=== PATIENT | female | born 1955 | race Caucasian/White ===

== ENCOUNTER 2016-06-15 13:06 | Outpatient (CLI) | payer MEDICARE, OTHER ==
[2016-06-15 13:39] LABS: #Eosinphils 0.2 thou/uL (0.0-0.7); #Lymphocytes 1.5 thou/uL (1.20-3.40); #Monocytes 0.3 thou/uL (0.11-0.59); #Neutrophils 3.2 thou/uL (1.40-6.50); %Basophils 0.8 % (0.0-1.0); %Eosinophils 3.1 % (0.0-10.0); %Monocytes 5.9 % (0.0-10.0); Mean Platelet Volume 7.3 fL (7.4-10.4); Red Blood Cell (RBC) Count 5.15 mill/uL (4.20-5.40); White Blood Cell (WBC) Count 5.2 thou/uL (4.8-10.8)
[2016-06-15 13:54] LABS: ALT (SGPT) 46 U/L (0-55); AST (SGOT) 25 U/L (5-34); Alkaline Phosphatase 126 U/L (40-150); Anion Gap 13 mmol/L (10-20); BUN (Urea Nitrogen) 13 mg/dL (9.8-20.1); Bilirubin, Total 0.6 mg/dL (0.2-1.2); Calc. Creatinine Clearance 0 mL/min (70-130); Calcium 10.2 mg/dL (7.8-10.44); Carbon Dioxide 26 mmol/L (22-29); Chloride 109 mmol/L (98-107); Estimated GFR-MDRD 64; Globulin 2.5 g/dL (2.4-3.5); Protein, Total 6.9 g/dL (6.0-8.3)
== END 2016-06-15 13:07 ==
LOC: HPCALD 13:06
PROVIDERS: ATTEND Physician Assistant
DX: E78.5 Hyperlipidemia, unspecified (principal); W19.XXXD Unspecified fall, subsequent encounter
CPT/HCPCS: 36415; 80053; 80061; 84443; 85025

== ENCOUNTER 2016-09-21 11:02 | Outpatient (CLI) | payer MEDICARE, OTHER | END 2016-09-21 11:03 | LOC: HPCALD 11:02 | PROVIDERS: ATTEND Physician Assistant | DX: N39.0 Urinary tract infection, site not specified (principal) | CPT/HCPCS: 87086 ==

== ENCOUNTER 2016-11-16 11:50 | Outpatient (CLI) | payer MEDICARE | END 2016-11-16 11:51 | disposition home or self-care (01) | LOC: HPCALD 11:50 | PROVIDERS: ATTEND Physician Assistant | DX: N39.0 Urinary tract infection, site not specified (principal) | CPT/HCPCS: 87086 ==

== ENCOUNTER 2016-11-30 10:02 | Outpatient (CLI) | payer MEDICARE | END 2016-11-30 10:03 | LOC: HPCALD 10:02 | PROVIDERS: ATTEND Physician Assistant | DX: F31.62 Bipolar disorder, current episode mixed, moderate (principal) | CPT/HCPCS: 36415; 80178 ==

== ENCOUNTER 2016-12-02 11:09 | Outpatient (CLI) | payer MEDICARE ==
--- NOTE | 2016-12-02 20:51 | ULT ---
BILATERAL RENAL ULTRASOUND 12/02/16 Ultrasonography of the kidneys was performed for evaluation of flank pain. Documentary images and wo rksheets were provided and reviewed. The right kidney measures 9.7 x 4.9 x 4.3 cm and the left measures 11.0 x 5.0 x 4.0 cm. No mass or h ydronephrosis was seen in either. The cortical thickness was slightly thinned bilaterally but symmet rical. There were no focal renal abnormalities of concern. No masses were seen within the urinary bladder. The wall thickness was borderline at 3 mm. IMPRESSION: No definite acute urinary tract finding. POS: HOME
== END 2016-12-02 11:10 | disposition home or self-care (01) ==
LOC: BURULT 11:09
PROVIDERS: ATTEND Nurse Practitioner Family
DX: R10.9 Unspecified abdominal pain (principal)
CPT/HCPCS: 76770

== ENCOUNTER 2016-12-21 13:52 | Outpatient (CLI) | payer MEDICARE, OTHER | END 2016-12-21 13:53 | disposition home or self-care (01) | LOC: HPCALD 13:52 | PROVIDERS: ATTEND Physician Assistant | DX: F31.62 Bipolar disorder, current episode mixed, moderate (principal) | CPT/HCPCS: 36415; 80178 ==

== ENCOUNTER 2016-12-28 13:50 | Outpatient (CLI) | payer MEDICARE ==
--- NOTE | 2016-12-28 21:59 | RAD ---
RIGHT ANKLE 3 VIEWS: DATE: 12/28/16. FINDINGS: Old fractures of the tip of the lateral malleolus are evident. Some of the fragments are ununited. This does not appear at all recent. The ankle joint is normal in width and the articular surfaces are smooth. On the oblique view, one might wonder about a little lucency in the dome of the talus l aterally, but it is not enough to confidently diagnose an osteochondral defect. If pain persisted, an MRI would be needed to fully evaluate it. IMPRESSION: 1. Old injury of lateral malleolus. 2. Other findings as noted. POS: HOME
--- NOTE | 2016-12-28 22:01 | RAD ---
RIGHT KNEE 4 VIEWS: DATE: 12/28/16. FINDINGS: No fracture or joint effusion was seen. There is calcification of the menisci, however. This can b e seen in degenerative conditions and chondrocalcinosis (due to various deposition diseases). The j oint space is acceptable for age and equal between compartments. IMPRESSION: 1. No acute findings. 2. Meniscal calcifications. See above. POS: HOME
== END 2016-12-28 13:51 | disposition home or self-care (01) ==
LOC: BURRAD 13:50
PROVIDERS: ATTEND Physician Assistant
DX: M25.561 Pain in right knee (principal); M25.861 Other specified joint disorders, right knee

== ENCOUNTER 2017-07-01 14:48 | Outpatient (CLI) | payer MEDICARE ==
--- NOTE | 2017-07-02 07:29 | RAD ---
RIGHT WRIST THREE VIEWS 07/01/17 No fracture was apparent. Carpals appeared normal. The metacarpals appear normal. IMPRESSION: No acute finding. POS: HOME
== END 2017-07-01 14:49 | disposition home or self-care (01) ==
LOC: BURRAD 14:48
PROVIDERS: ATTEND Physician Assistant
DX: M25.531 Pain in right wrist (principal)

== ENCOUNTER 2017-07-04 13:32 | Emergency (ER) | payer MEDICARE ==
[2017-07-04] MEDS ORDERED: Ibuprofen 800 MG TAB ONE (14:15)
--- NOTE | 2017-07-04 17:11 | RAD ---
RIGHT ANKLE THREE VIEWS: Date: 07-04-17 Comparison: 12-28-16 FINDINGS: Soft tissue swelling is present around the ankle, a little more medially than laterally today. An old ununited fracture at the tip of the lateral malleolus is present as before. No new fractures or new bony changes were appreciated. A tiny calcaneal spur was noted. IMPRESSION: Soft tissue swelling. Old ununited distal fibular fracture. POS: HOME
== END 2017-07-04 14:20 | disposition home or self-care (01) ==
LOC: BURERS 13:32
DX: S93.601A Unspecified sprain of right foot, initial encounter (principal); S82.831K Other fracture of upper and lower end of right fibula, subsequent encounter for closed fracture with nonunion; E11.9 Type 2 diabetes mellitus without complications; I10 Essential (primary) hypertension; E78.5 Hyperlipidemia, unspecified; Z79.899 Other long term (current) drug therapy; W19.XXXA Unspecified fall, initial encounter

== ENCOUNTER 2017-07-22 16:51 | Inpatient (IN) | payer MEDICARE ==
[2017-07-22] MEDS ORDERED: methylPREDNISolone Sod Succ/PF 125 MG/2 ML VIAL ONE (17:23)
[2017-07-22 17:40] LABS: #Eosinphils 0.1 thou/uL (0.0-0.7); #Lymphocytes 1.2 thou/uL (1.20-3.40); #Monocytes 0.5 thou/uL (0.11-0.59); #Neutrophils 8.6 thou/uL (1.40-6.50); %Basophils 0.3 % (0.0-1.0); %Eosinophils 0.7 % (0.0-10.0); %Lymphocytes 11.8 % (21.0-51.0); %Monocytes 4.9 % (0.0-10.0); %Neutrophils 82.3 % (42.0-75.0); Hemoglobin 13.2 g/dL (12.0-16.0); Mean Corpuscular HGB CONC 33.4 g/dL (32.0-36.0); Mean Corpuscular Volume 92.7 fl (81.0-99.0); Mean Platelet Volume 8.3 fL (7.4-10.4); Platelet Count 263 thou/uL (130-400); RBC Distribution Width 14.4 % (11.5-14.5); Red Blood Cell (RBC) Count 4.27 mill/uL (4.20-5.40); White Blood Cell (WBC) Count 10.5 thou/uL (4.8-10.8)
[2017-07-22 17:48] LABS: ALT (SGPT) 19 U/L (8-55); AST (SGOT) 13 U/L (5-34); Albumin 4.7 g/dL (3.5-5.0); Alkaline Phosphatase 92 U/L (40-150); Anion Gap 13 mmol/L (10-20); BUN (Urea Nitrogen) 19 mg/dL (9.8-20.1); Bilirubin, Total 0.5 mg/dL (0.2-1.2); Calc. Creatinine Clearance 0 mL/min (70-130); Calcium 11.1 mg/dL (7.8-10.44); Carbon Dioxide 28 mmol/L (22-29); Chloride 103 mmol/L (98-107); Estimated GFR-MDRD 74; Globulin 2.5 g/dL (2.4-3.5); Glucose 118 mg/dL (70-105); Potassium 3.8 mmol/L (3.5-5.1); Protein, Total 7.2 g/dL (6.0-8.3); Sodium 140 mmol/L (136-145)
[2017-07-22 17:52] LABS: CKMB 2.5 ng/mL (0-6.6)
[2017-07-22] MEDS ORDERED: Albuterol Sulfate 2.5 mg/3 ml Neb ONE (17:54)
[2017-07-22 18:06] LABS: Bilirubin Negative (Negative); Blood, Urine Negative (Negative); Clarity Slightly Cloudy (Clear); Glucose, Urine (Dipstick) Negative (Negative); Leukocyte Large (Negative); Nitrite Negative (Negative); Protein, Urine (Dipstick) Trace mg/dL (Neg-Trace); Specific Gravity, Urine 1.015 (1.005-1.030); Urobilinogen 0.2 mg/dL (0.2-1.0)
[2017-07-22 18:12] LABS: RBC/HPF None Seen HPF (0-3)
[2017-07-22 18:13] LABS: Bacteria/HPF 1+ HPF (None Seen); Crystals/HPF None Seen HPF (Negative); Hyaline Casts/LPF NONE SEEN LPF (0-3 Hyaline); Other Casts/LPF None Seen LPF (0-3 Hyaline); Oval Fat Bodies/HPF None Seen HPF (None Seen); Renal Epithelial None Seen HPF (0-3); Sperm/HPF None Seen HPF (None Seen); Squamous Epithelial 0-3 HPF (0-3); Transitional Epithelial NONE SEEN HPF (0-3); Trichomonas/HPF None Seen HPF (None Seen); Yeast-All Forms None Seen HPF (None Seen)
[2017-07-22] MEDS ORDERED: Ciprofloxacin 500 MG TAB ONE (18:27)
[2017-07-22] MEDS ORDERED: Magnesium Sulfate 2 GM/100 ML BAG ONE (18:27)
[2017-07-22] MEDS ORDERED: Ondansetron ODT 4 MG TAB SL PRN (21:05)
[2017-07-22] MEDS ORDERED: Ondansetron HCl/PF 4 MG/2 ML Vial IVP PRN (21:05)
[2017-07-22] MEDS ORDERED: Albuterol Sulfate 2.5 mg/3 ml Neb NEB PRN (21:09)
--- NOTE | 2017-07-22 21:12 | RAD ---
PORTABLE CHEST 07/22/17 An AP portable film at 1708 is compared with a 05/16/16 study. Haziness to the left of the heart was present before and is actually better today than previously. As danuta from this, the lungs are clear. There are no effusions. No congestive changes are present. The he art size is normal. IMPRESSION: Mild scarring on the left but no acute findings. POS: HOME
[2017-07-22] MEDS ORDERED: PROVENTIL INHALER 6.7 G (200 INHALATIONS) INH PRN (21:33)
[2017-07-22 22:02] VITALS: BMI 26.2
[2017-07-22] MEDS ORDERED: Fluconazole 100 MG TAB PO SCH (23:00)
[2017-07-22] MEDS ORDERED: busPIRone HCl 5 MG TAB PO SCH (23:00)
[2017-07-22] MEDS ORDERED: traZODone HCl 50 MG TAB PO SCH (23:00)
[2017-07-22] MEDS ORDERED: Lithium Carbonate 150 MG CAP PO SCH (23:00)
[2017-07-22] MEDS ORDERED: risperiDONE 0.5 MG TAB PO SCH (23:00)
[2017-07-23] MEDS: Acetaminophen 325 MG TAB PO PRN ×6 (00:30→23:59)
[2017-07-23] MEDS ORDERED: Ciprofloxacin 500 MG TAB PO SCH (09:00)
[2017-07-23] MEDS: Meloxicam 7.5 MG TAB PO SCH (10:00)
[2017-07-23] MEDS: busPIRone HCl 5 MG TAB PO SCH ×2 (10:01→20:48)
[2017-07-23] MEDS: Famotidine 20 MG TAB PO SCH ×2 (10:01→20:46)
[2017-07-23] MEDS: Lithium Carbonate 150 MG CAP PO SCH (10:02)
[2017-07-23] MEDS: Enoxaparin Sodium 30 MG/0.3 ML SYRINGE SC SCH (10:03)
[2017-07-23] MEDS: Nystatin Cream 15 GM TUBE TOP SCH ×2 (10:04→20:52)
[2017-07-23] MEDS: methylPREDNISolone Sod Succ/PF 125 MG/2 ML VIAL IVP SCH ×3 (10:05→20:55)
[2017-07-23] MEDS: Fluconazole 100 MG TAB PO SCH (10:05)
[2017-07-23] MEDS: Nicotine 7 MG PATCH TOP SCH (10:09)
[2017-07-23] MEDS ORDERED: Dextrose 5% in Water 1,000 ML IV PRN (11:51)
[2017-07-23] MEDS ORDERED: Dextrose 50% Abboject 50 ML SYRINGE SLOW IVP PRN (11:51)
[2017-07-23] MEDS: Guaifenesin DM 100-10/5 ML UDCUP PO PRN ×2 (12:24→18:30)
--- NOTE | 2017-07-23 13:45 | HP ---
CHIEF COMPLAINT: Cough. HISTORY OF PRESENT ILLNESS: Ms. Bravo is a 62-year-old female with past medical hist ory of asthma and tobacco abuse who presented to the emergency room complaining of 2 days of increasi ng cough, productive sputum, and shortness of breath. She denies fever, hemoptysis, chest pain, leg edema. In the emergency room, she was notably hypoxic on room air and required neb treatments and oxygen the rapy. Her O2 sat subsequently improved and she has been admitted for COPD exacerbation. The patient also with a history of ankle injury in December of last year. She also had a recent fall a nd was evaluated through the emergency room in June. At that time, an x-ray was performed that s howed an old lateral malleolar fracture, but no acute findings and was diagnosed with an ankle sprain . She followed up in the outpatient clinic with her PCP Ms. Malina Hwang and was instructed to cont inue ibuprofen as needed and given education regarding ankle sprains. The patient reports she has alvarado d improvement of the swelling, but still has persistent pain in the ankle. PAST MEDICAL HISTORY: 1. Diabetes, diet controlled. 2. Bipolar disorder, followed by [facility] with recent hospitalization [facility]. 3. Malignant melanoma. PAST SURGICAL HISTORY: 1. Tonsillectomy. 2. Appendectomy. 3. Skin cancer removal, right shoulder. 4. Laparoscopic cholecystectomy. 5. Total hysterectomy. FAMILY HISTORY: Both her mother and father are and history is otherwise noncontributory. SOCIAL HISTORY: Denies alcohol or illicit drug use. Admits to smoking, but states she only smokes 3 cigarettes per day. CURRENT MEDICATIONS: 1. ProAir HFA 2 puffs inhaled q.6h. p.r.n. shortness of breath. 2. Meloxicam 15 mg p.o. daily. 3. BuSpar 5 mg p.o. b.i.d. 4. Trazodone 150 mg p.o. at bedtime. 5. Risperdal 3 mg p.o. at bedtime. 6. Strawberry 300 mg q.a.m. and 600 mg at bedtime. 7. Sertraline 100 mg p.o. daily. ALLERGIES: No known drug allergies. REVIEW OF SYSTEMS: Ten system review is positive for cough, sputum production, pleuritic pain with c ough. Right ankle pain, bipolar disorder, otherwise negative. PHYSICAL EXAMINATION: VITAL SIGNS: Temperature 97.6, heart rate 99, respirations 20, 96% O2 sat on 2 liters per minute, bl ood pressure 142/65. GENERAL: Well-developed, well-nourished female in no acute distress. She is alert and anurag ented x3. HEENT: Normocephalic, atraumatic. Pupils equal, round, reactive to light and accommodation. Extrao cular muscles intact. Nares are patent without discharge. Tongue protrudes in the midline. NECK: Supple, without lymphadenopathy, thyromegaly, JVD or bruit. HEART: Regular rate and rhythm, normal S1, S2. No murmurs, clicks, rubs, or gallops. LUNGS: Diminished air entry throughout with coarse cough and a very rare expiratory wheeze at the ba ses. ABDOMEN: Positive bowel sounds in all 4 quadrants. Soft, nontender, nondistended, no masses, guardi ng, or rebound tenderness. EXTREMITIES: No cyanosis, clubbing, edema. The right ankle is without swelling and has tenderness t o palpation over the ATFL just inferior to the lateral malleolus on the right. NEUROLOGIC: Cranial nerves II-XII grossly intact. No focal deficits. LABORATORY DATA: White count 10.5, hemoglobin 13.2, hematocrit 39.6, platelets 263, sodium 140, pota ssium 3.8, chloride 103, bicarbonate 28, BUN 19, creatinine 0.79, glucose 118, calcium 1.1, total isabel irubin 0.5, AST 13, ALT 19, alkaline phosphatase 92, CK-MB 2.5, troponin I 0.010, BNP 49.7, serum tot al protein 7.2, albumin 4.7. Urinalysis significant for large leukocyte esterase, 7-10 WBC, 1+ bacte lisseth, otherwise unremarkable. Strawberry 0.868. IMAGING: Chest x-ray; mild scarring on the left, no acute findings. ASSESSMENT AND PLAN: 1. Chronic obstructive pulmonary disease exacerbation. The patient will be continued on Solu-Medrol IV, supportive nebs and O2 p.r.n. to keep sats greater than 90%. The patient will be started on Cip ro. Follow up blood cultures. 2. Acute cystitis. Urine culture has been performed and we will follow that. Continue Cipro. 3. Right ankle pain. I will review her charting to determine what is most appropriate. She may ashok pablo need air stirrup cast with weightbearing. We will continue her Meloxicam with Tylenol p.r.n. for breakthrough pain. 4. Tobacco abuse. I have discussed a nicotine patch with the patient, but she declines at this time . She has been advised that she cannot smoke. Smoking cessation education will be given while hospi talized. 5. Diet controlled diabetes. We will place the patient on Accu-Cheks. Diabetic diet, con carb at 1 800 calories per day. 6. Bipolar disorder. The patient will be continued on her psych regimen. 7. Prophylaxis. The patient will be given Lovenox for prophylaxis and sequential compression device s as well as Pepcid. 8. CODE STATUS: Full code.
[2017-07-23] MEDS: Ciprofloxacin 500 MG TAB PO SCH (20:48)
[2017-07-23] MEDS ORDERED: risperiDONE 0.5 MG TAB PO SCH (21:00)
[2017-07-23] MEDS ORDERED: traZODone HCl 50 MG TAB PO SCH (21:00)
[2017-07-23] MEDS ORDERED: Lithium Carbonate 150 MG CAP PO SCH (21:00)
[2017-07-24] MEDS: Ciprofloxacin 500 MG TAB PO SCH (06:24)
[2017-07-24 06:50] VITALS: BP 180/79; TEMP 97.5
[2017-07-24] MEDS: Nystatin Cream 15 GM TUBE TOP SCH (08:12)
[2017-07-24] MEDS: methylPREDNISolone Sod Succ/PF 125 MG/2 ML VIAL IVP SCH (08:13)
[2017-07-24] MEDS: Guaifenesin DM 100-10/5 ML UDCUP PO PRN ×2 (08:15)
[2017-07-24] MEDS: Meloxicam 7.5 MG TAB PO SCH (08:16)
[2017-07-24] MEDS: Famotidine 20 MG TAB PO SCH (08:16)
[2017-07-24] MEDS: Lithium Carbonate 150 MG CAP PO SCH (08:17)
[2017-07-24] MEDS: Fluconazole 100 MG TAB PO SCH (08:18)
[2017-07-24] MEDS: busPIRone HCl 5 MG TAB PO SCH (08:18)
[2017-07-24] MEDS: Enoxaparin Sodium 30 MG/0.3 ML SYRINGE SC SCH (08:18)
[2017-07-24] MEDS: Acetaminophen 325 MG TAB PO PRN (08:19)
[2017-07-24] MEDS: Nicotine 7 MG PATCH TOP SCH (08:32)
--- NOTE | 2017-07-24 13:31 | DIS ---
DATE OF ADMISSION: 07/22/2017 DATE OF DISCHARGE: 07/24/2017 ADMISSION DIAGNOSES: 1. Chronic obstructive pulmonary disease exacerbation. 2. Acute cystitis. 3. Bipolar disorder. 4. Diet-controlled diabetes. DISCHARGE DIAGNOSES: 1. Chronic obstructive pulmonary disease exacerbation. 2. Acute cystitis. 3. Bipolar disorder. 4. Diet-controlled diabetes. 5. Hypertension. ATTENDING PHYSICIAN: Dr. Elsy Ramirez. HISTORY AND PHYSICAL: Please see dictated report from date of admission. PROCEDURES: Chest x-ray from the date of admission showing mild scarring on the left, but no acute f indings. HOSPITAL COURSE: Ms. Bravo is a 62-year-old female with past medical history of COPD , who presented to the emergency department with worsening cough and shortness of breath. She was no tably hypoxic upon presentation, which improved with nebulizer treatments, supportive O2. She was ad mitted for COPD exacerbation, placed on IV steroid therapy. She was started on Cipro. Her urinalysi s was also suspicious for urinary tract infection. The patient's condition continued to improve such that on the date of discharge, she denies shortness of breath. She is still having a productive cou gh of clear sputum. She is satting 90%-92% on room air and is ambulating in the halls without oxygen . She has been noncompliant with her oxygen therapy throughout her stay here. She was requesting at this time to go home. On examination, she has rare wheeze at the base and coarse breath sounds. She does not have a home n ebulizer and this has been prescribed for her as well as DuoNeb treatments. She will be discharged o n a prednisone taper for approximately 14 days and a complete course of Cipro. Regarding her urinary tract infection, urine culture on the date of discharge shows rare growth with blood culture in progress. Patient with history of tobacco abuse. She admitted to ut only smoking approximately 3 cigarettes pe r day. I had initially offered nicotine patch, which she declines. Then, she was requesting to go o ndside and smoke. The patient was instructed that this is a smoke-free campus. Nicotine patch was o rdered for the patient. The patient continued to go outside to attempt to smoke while hospitalized a nd was thoroughly counseled on smoking cessation during her hospital stay. The patient was notably hypertensive throughout her hospitalization with systolic blood pressure rang ing from 142-180 and diastolic blood pressure ranging from 65-77. The patient has been started on ne w medication of amlodipine 5 mg daily. This should be followed up in the outpatient setting to ensur e good control. The patient is also advised to check her blood pressure at least twice weekly and ke ep a log to bring to her followup visit with her PCP. The patient complained of right ankle pain upon admission. She had had a previous injury in 12/2016. A recent ER visit confirmed an old lateral malleolar fracture, but no acute findings and therefore was diagnosed with an ankle sprain. The patient was placed in an Aircast during her hospitalization here, which she can wean over a period of approximately 6 weeks. She has been instructed range of mo tion exercises for the ankle. The patient had no notable swelling on examination and tenderness to p alpation over the ATFL on examination. She will continue Meloxicam and Tylenol in the outpatient set ting. The patient with history of bipolar disorder. She had recent hospitalization at [facility]. Her medication regimen was not changed during her hospitalization. The patient reported a past history of diabetes that is diet controlled. I did thoroughly review her chart and she has only had minimal elevations of her glucose documented. She may have some hypergly cemia associated with her prednisone taper. Therefore, I have instructed her to continue diabetic di et. DISPOSITION: Discharged to home. CONDITION: Good. DISCHARGE MEDICATIONS: 1. ProAir HFA 2 puffs q.4 hours p.r.n. shortness of breath. 2. Meloxicam 15 mg p.o. daily. 3. BuSpar 5 mg p.o. b.i.d. 4. Trazodone 150 mg p.o. at bedtime. 5. Risperdal 3 mg p.o. at bedtime. 6. Choudrant 300 mg p.o. q.a.m. and 600 mg p.o. at bedtime. 7. Zoloft 100 mg p.o. daily. 8. Prednisone taper 20 mg 3 p.o. x4 days, then 2 p.o. x4 days, then 1 p.o. x3 days, then half p.o. x 3 days, then stop. 9. Nystatin apply to affected area topically b.i.d. 10. Nebulizer pressor system #1 to be used with DuoNeb. 11. DuoNeb 3 mL nebulized t.i.d., p.r.n. shortness of breath and cough. 12. Cipro 500 mg p.o. b.i.d. x10 additional doses to complete a full 7-day course. 13. Amlodipine 5 mg p.o. daily. The patient is instructed to follow up with her primary care provider, Reva Hwang, in approxi mately 10 days.
[2017-07-24] MEDS ORDERED: predniSONE 20 MG TAB PO SCH (17:00)
[2017-07-25] MEDS ORDERED: Amlodipine 5 MG TAB PO SCH (09:00)
== END 2017-07-24 15:13 | disposition home or self-care (01) | DRG 191 ==
LOC: BURERS 16:51 → BURMED 19:08
PROVIDERS: ADMIT Family Medicine; ATTEND Family Medicine
DX: J44.1 Chronic obstructive pulmonary disease with (acute) exacerbation (principal); N30.00 Acute cystitis without hematuria; F17.210 Nicotine dependence, cigarettes, uncomplicated; E11.9 Type 2 diabetes mellitus without complications; F31.9 Bipolar disorder, unspecified; Z85.820 Personal history of malignant melanoma of skin; M25.571 Pain in right ankle and joints of right foot; I10 Essential (primary) hypertension
CPT/HCPCS: 36416; 71045; 80053; 80178; 81003; 81015; 82553; 83880; 84484; 85025; 87086; 93005; 94640; 94760; 96365; 96375; A4216; J1650; J2930; J3475; J7611; J7620

== ENCOUNTER → 2017-08-25 | Emergency (ER) | payer MEDICARE ==
[~2017-08-25] MED LIST: Dexamethasone 4 mg/ml Vial ONE; metroNIDAZOLE 500 MG/100 ML BAG ONE
[2017-08-25 12:56] LABS: pH (venous) 7.38 (7.35-7.45)
[2017-08-25 12:57] LABS: #Eosinphils 0.1 thou/uL (0.0-0.7); #Lymphocytes 0.9 thou/uL (1.20-3.40); #Monocytes 0.4 thou/uL (0.11-0.59); #Neutrophils 6.9 thou/uL (1.40-6.50); %Basophils 0.5 % (0.0-1.0); %Eosinophils 0.7 % (0.0-10.0); %Lymphocytes 11.2 % (21.0-51.0); %Monocytes 5.2 % (0.0-10.0); %Neutrophils 82.4 % (42.0-75.0); Base Excess 3.6 mEq/L (-2 - +2); Hemoglobin 12.8 g/dL (12.0-16.0); Hemoglobin (Hb) 13.8 g/dL (11.7-16.0); Mean Corpuscular HGB CONC 30.8 g/dL (32.0-36.0); Mean Corpuscular Hemoglobin 28.6 pg (27.0-31.0); Mean Corpuscular Volume 92.8 fl (81.0-99.0); Platelet Count 180 thou/uL (130-400); RBC Distribution Width 13.6 % (11.5-14.5); Red Blood Cell (RBC) Count 4.46 mill/uL (4.20-5.40); White Blood Cell (WBC) Count 8.4 thou/uL (4.8-10.8)
[2017-08-25 13:10] LABS: Bilirubin Negative (Negative); Blood, Urine Negative (Negative); Clarity Clear (Clear); Glucose, Urine (Dipstick) Negative (Negative); Leukocyte Moderate (Negative); Nitrite Negative (Negative); Protein, Urine (Dipstick) Negative (Neg-Trace); Specific Gravity, Urine 1.015 (1.005-1.030); Urobilinogen 0.2 mg/dL (0.2-1.0)
[2017-08-25 13:14] LABS: ALT (SGPT) 13 U/L (8-55); AST (SGOT) 10 U/L (5-34); Alkaline Phosphatase 66 U/L (40-150); Anion Gap 11 mmol/L (10-20); BUN (Urea Nitrogen) 10 mg/dL (9.8-20.1); Bilirubin, Total 0.4 mg/dL (0.2-1.2); Calc. Creatinine Clearance 0 mL/min (70-130); Calcium 10.3 mg/dL (7.8-10.44); Carbon Dioxide 29 mmol/L (22-29); Chloride 108 mmol/L (98-107); Estimated GFR-MDRD 65; Globulin 2.1 g/dL (2.4-3.5); Glucose 97 mg/dL (70-105); Potassium 4.2 mmol/L (3.5-5.1); Protein, Total 6.1 g/dL (6.0-8.3); Sodium 144 mmol/L (136-145)
[2017-08-25 13:15] LABS: Bacteria/HPF Rare-Few HPF (None Seen); RBC/HPF 0-3 HPF (0-3); Squamous Epithelial 0-3 HPF (0-3)
[2017-08-25 13:15] LABS: Acetaminophen Less than 6.0 mcg/mL (10.0-30.0); Alcohol Less than 10 mg/dL (Less than 10); Salicylate Less than 8.0 mg/dL (15.0-30.0)
--- NOTE | 2017-08-25 19:54 | RAD ---
PORTABLE CHEST: 08/25/17 An AP portable film at 1249 is compared with a 07/22/17 study. There has been no adverse interval change. The heart is normal in size. There is no congestive change or pleural effusion. A little haziness in the left base is no different than before, and part of this is due to overlying breast tissue. A calc ified granuloma is seen in the left base as before. The trachea is midline. IMPRESSION: No acute thoracic finding. POS: HOME
== END ==
LOC: BURERS 12:41
DX: J44.1 Chronic obstructive pulmonary disease with (acute) exacerbation (principal); N39.0 Urinary tract infection, site not specified; E11.9 Type 2 diabetes mellitus without complications; I10 Essential (primary) hypertension; E78.5 Hyperlipidemia, unspecified; F31.9 Bipolar disorder, unspecified; F17.210 Nicotine dependence, cigarettes, uncomplicated
CPT/HCPCS: 36416; 71045; 80053; 80307; 81003; 81015; 82805; 84443; 85025; 93005; J1100; J7620

== ENCOUNTER 2017-12-30 09:03 | Emergency (ER) | payer MEDICARE ==
[2017-12-30 09:43] LABS: #Eosinphils 0.1 thou/uL (0.0-0.7); #Lymphocytes 0.8 thou/uL (1.20-3.40); #Monocytes 0.4 thou/uL (0.11-0.59); #Neutrophils 6.1 thou/uL (1.40-6.50); %Basophils 0.6 % (0.0-1.0); %Eosinophils 1.4 % (0.0-10.0); %Lymphocytes 10.3 % (21.0-51.0); %Monocytes 5.2 % (0.0-10.0); %Neutrophils 82.4 % (42.0-75.0); Hemoglobin 13.7 g/dL (12.0-16.0); Mean Corpuscular HGB CONC 34.4 g/dL (32.0-36.0); Mean Corpuscular Hemoglobin 29.1 pg (27.0-31.0); Mean Corpuscular Volume 84.7 fL (78.0-98.0); Mean Platelet Volume 7.1 fL (7.4-10.4); Platelet Count 209 thou/uL (130-400); RBC Distribution Width 13.6 % (11.5-14.5); White Blood Cell (WBC) Count 7.3 thou/uL (4.8-10.8)
[2017-12-30 09:56] LABS: Acetaminophen Less than 6.0 mcg/mL (10.0-30.0); Alcohol Less than 10 mg/dL (Less than 10); Salicylate Less than 8.0 mg/dL (15.0-30.0)
[2017-12-30 09:59] LABS: ALT (SGPT) 35 U/L (8-55); AST (SGOT) 38 U/L (5-34); Albumin 4.2 g/dL (3.5-5.0); Alkaline Phosphatase 83 U/L (40-150); Anion Gap 10 mmol/L (10-20); BUN (Urea Nitrogen) 13 mg/dL (9.8-20.1); Bilirubin, Total 0.4 mg/dL (0.2-1.2); CK (CPK) 451 U/L (29-168); Calc. Creatinine Clearance 0 mL/min (70-130); Calcium 10.6 mg/dL (7.8-10.44); Carbon Dioxide 30 mmol/L (22-29); Chloride 107 mmol/L (98-107); Estimated GFR-MDRD 84; Globulin 2.1 g/dL (2.4-3.5); Glucose 114 mg/dL (70-105); Potassium 4.1 mmol/L (3.5-5.1); Protein, Total 6.3 g/dL (6.0-8.3); Sodium 143 mmol/L (136-145)
[2017-12-30 10:32] LABS: Clarity Slightly Cloudy (Clear); Glucose, Urine (Dipstick) Negative (Negative); Leukocyte Small (Negative); Nitrite Negative (Negative); Protein, Urine (Dipstick) Negative (Neg-Trace); Specific Gravity, Urine 1.015 (1.005-1.030)
[2017-12-30 10:33] LABS: Bacteria/HPF Rare-Few HPF (None Seen); Bilirubin Negative (Negative); Blood, Urine Trace (Negative); RBC/HPF 0-3 HPF (0-3); Squamous Epithelial 0-3 HPF (0-3); Urobilinogen 0.2 mg/dL (0.2-1.0); WBC/HPF 0-3 HPF (0-3)
[2017-12-30 10:34] LABS: Oval Fat Bodies/HPF 1+ HPF (None Seen)
[2017-12-30 10:36] LABS: Amphetamine Not Detected (NotDetected); Barbiturates Screen Not Detected (NotDetected); Benzodiazepine Screen Not Detected (NotDetected); Cocaine Metabolite Screen Not Detected (NotDetected); Medtox Control Line Valid? VALID (VALID); Methadone Not Detected (NotDetected); Methamphetamine Not Detected (NotDetected); Opiate Screen Not Detected (NotDetected); Oxycodone Screen Not Detected (NotDetected); Phencyclidine (PCP) Not Detected (NotDetected); THC/Cannabinoid Screen Not Detected (NotDetected); Tricyclic Screen Not Detected (NotDetected)
== END 2017-12-30 12:54 | disposition home or self-care (01) ==
LOC: BURERS 09:03
DX: S00.03XA Contusion of scalp, initial encounter (principal); S50.12XA Contusion of left forearm, initial encounter; M54.9 Dorsalgia, unspecified; F31.9 Bipolar disorder, unspecified; E11.9 Type 2 diabetes mellitus without complications; I10 Essential (primary) hypertension; E78.5 Hyperlipidemia, unspecified; F17.210 Nicotine dependence, cigarettes, uncomplicated; Z79.899 Other long term (current) drug therapy; W18.30XA Fall on same level, unspecified, initial encounter
CPT/HCPCS: 80053; 80178; 80306; 80307; 81003; 81015; 82550; 85025; 99284

== ENCOUNTER 2018-01-24 00:10 | Emergency (ER) | payer MEDICARE | END 2018-01-24 00:47 | disposition home or self-care (01) | LOC: BURERS 00:10 | DX: M25.531 Pain in right wrist (principal); I10 Essential (primary) hypertension; E78.5 Hyperlipidemia, unspecified; F31.9 Bipolar disorder, unspecified; F17.210 Nicotine dependence, cigarettes, uncomplicated; Z79.899 Other long term (current) drug therapy | CPT/HCPCS: 99283 ==